=== PATIENT | male | born 1990 | race Caucasian/White ===

== ENCOUNTER 2016-08-28 07:26 | Emergency (ER) | payer MEDICAID, OTHER ==
[~2016-08-28] VITALS: Wt 102.0 kg
[2016-08-28] MEDS ORDERED: HC30CR25 TOP (08:29)
[2016-08-28] MEDS ORDERED: CEPH-443 PO (08:29)
[2016-08-28] MEDS ORDERED: ELIM TOP (08:30)
[2016-08-28] MEDS ORDERED: BEN25 PO (08:30)
--- NOTE | 2016-08-28 08:36 | ERD ---
ER Documentation Chief Complaint Date/Time DATE: 08/28/16 TIME: 08:32 Chief Complaint SKIN RASH X 2 WEEKS HPI Is a 26-year-old male who presents the emergency department today for a rash on his left leg and right side of his neck. 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 States he is concerned he has scabies. States that the rash is itchy. States it is been there for 3 weeks. States he got out of snf today. States the rash in his neck comes and goes denies any fevers or chills ROS All systems reviewed and are negative except as per history of present illness. Medications Home Meds Active Scripts Permethrin* (Elimite*) 5% Cr, 1 APPLIC TOP ONCE, #1 TUB Prov:LOKI MOLINA PA-C 08/28/16 Diphenhydramine Hcl* (Benadryl*) 25 Mg Cap, 25 MG PO Q6, #30 CAP Prov:LOKI MOLINA PA-C 08/28/16 Cephalexin* (Keflex*) 500 Mg Capsule, 500 MG PO QID for 7 Days, CAP Prov:LOKI MOLINA PA-C 08/28/16 Hydrocortisone* Topical (Hydrocortisone* Topical) 2.5%-28.3 Gm Cream..g., 1 APPLIC TOP BID for 7 Days, #1 TUB Prov:LOKI MOLINA PA-C 08/28/16 PMhx/Soc Medical and Surgical Hx: pt denies Medical Hx, pt denies Surgical Hx History of Surgery: No Anesthesia Reaction: No Hx Neurological Disorder: No Hx Respiratory Disorders: No Hx Cardiac Disorders: No Hx Psychiatric Problems: No Hx Miscellaneous Medical Probl: No Hx Alcohol Use: No Hx Substance Use: Yes Hx Tobacco Use: No Smoking Status: Former smoker Physical Exam Vitals Vital Signs Date Time Temp Pulse Resp B/P Pulse Ox O2 Delivery O2 Flow Rate FiO2 08/28/16 07:30 98.1 89 18 155/99 99 Physical Exam Const: No acute distress Head: Atraumatic Eyes: Normal Conjunctiva ENT: Normal External Ears, Nose and Mouth. Neck: Full range of motion..~ No meningismus. Resp: Clear to auscultation bilaterally Cardio: Regular rate and rhythm, no murmurs Abd: Soft, non tender, non distended. Normal bowel sounds Skin: Left tibia with mild skin excoriation. Right side of neck no evidence of rash.. No erythema or warmth. No purulent drainage Back: No midline or flank tenderness Ext: No cyanosis, or edema Neur: Awake and alert Psych: Normal Mood and Affect Procedures/MDM This is a 26-year-old male who presents the emergency department today for a rash on the right side of his neck and left tibia. On physical exam patient does have some mild skin excoriations. Patient was concerned of scabies as he has been in snf. I do not feel that patient's symptoms and signs are consistent with that however patient will be given a prescription for permethrin given that he has been in snf for the past year and may have contacted that. Rash appears to be more dermatitis as it is itchy. There is no evidence of rash on his neck. Patient has also been scratching the area. Patient is afebrile and otherwise well-appearing low suspicion for allergic reaction,, cellulitis, deep space tracking infection, sepsis, SJS, meningitis patient will also be given a prescription for hydrocortisone cream, Benadryl, Keflex. At this time the patient is stable for discharge and outpatient management. Patient should follow up with their PCP in the next 1-2 days. They may return to the emergency department sooner for any persistent or worsening of symptoms. Patient understood and agreed with the plan. Departure Diagnosis: Primary Impression: Rash and other nonspecific skin eruption Condition: Fair Patient Instructions: Self-Care for Skin Rashes Referrals: [facility] YOU HAVE RECEIVED A MEDICAL SCREENING EXAM AND THE RESULTS INDICATE THAT YOU DO NOT HAVE A CONDITION THAT REQUIRES URGENT TREATMENT IN THE EMERGENCY DEPARTMENT. FURTHER EVALUATION AND TREATMENT OF YOUR CONDITION CAN WAIT UNTIL YOU ARE SEEN IN YOUR DOCTORS OFFICE WITHIN THE NEXT 1-2 DAYS. IT IS YOUR RESPONSIBILITY TO MAKE AN APPOINTMENT FOR FOLOW-UP CARE. IF YOU HAVE A PRIMARY DOCTOR --you should call your primary doctor and schedule an appointment IF YOU DO NOT HAVE A PRIMARY DOCTOR YOU CAN CALL OUR PHYSICIAN REFERRAL HOTLINE AT IF YOU CAN NOT AFFORD TO SEE A PHYSICIAN YOU CAN CHOSE FROM THE FOLLOWING [facility] [address] [facility]. [facility] [address] [facility] [facility] [address] [facility] [address] [facility] [address] [facility]. [facility] [address] Additional Instructions: Call your primary care doctor TOMORROW for an appointment during the next 1-2 days.See the doctor sooner or return here if your condition worsens before your appointment time. Use hydrocortisone cream and take Benadryl as needed for itching Avoid further scratching and take antibiotics as prescribed Use permethrin cream for possible scabies infestation LOKI MOLINA PA-C Aug 28, 2016 08:35
== END 2016-08-28 09:05 | disposition home or self-care (01) ==
LOC: FTE 07:26
DX: R21 Rash and other nonspecific skin eruption (principal); Z87.891 Personal history of nicotine dependence
CPT/HCPCS: 99283

== ENCOUNTER 2016-09-05 15:41 | Emergency (ER) | payer MEDICAID ==
[~2016-09-05] VITALS: Ht 180.3 cm; Wt 134.5 kg
[~2016-09-05 15:41] MED LIST: BEN25 PO; CEPH-443 PO; ELIM TOP; HC30CR25 TOP
[2016-09-05 15:43] VITALS: Ht 180.3 cm; Wt 134.5 kg
[2016-09-05] MEDS ORDERED: [UNRECOGNIZED DRUG - CODE] MC (15:59)
--- NOTE | 2016-09-05 16:04 | ERD ---
ER Documentation Chief Complaint Date/Time DATE: 09/05/16 TIME: 16:02 Chief Complaint swollen feet x 3 days thinks it from medication he has been taking HPI 26-year-old male comes in with history of rash, currently being treated with Keflex, and also he used permethrin cream. He states he got a rash after being out of long-term, he thinks he might have gotten it from some sheets. He reports bilateral feet swelling for the past 3 days, there is no pain, no calf pain. There is no history of any hives, itching, angioedema. ROS All systems reviewed and are negative except as per history of present illness. Medications Home Meds Active Scripts Compression Socks, Medium (FUTURO RESTORING) 1 Each Each, 1 EACH MC for swelling , #1 Prov:ALBERTO SUAZO PA-C 09/05/16 Permethrin* (Elimite*) 5% Cr, 1 APPLIC TOP ONCE, #1 TUB Prov:LOKI MOLINA PA-C 08/28/16 Diphenhydramine Hcl* (Benadryl*) 25 Mg Cap, 25 MG PO Q6, #30 CAP Prov:LOKI MOLINA PA-C 08/28/16 Cephalexin* (Keflex*) 500 Mg Capsule, 500 MG PO QID for 7 Days, CAP Prov:LOKI MOLINA PA-C 08/28/16 Hydrocortisone* Topical (Hydrocortisone* Topical) 2.5%-28.3 Gm Cream..g., 1 APPLIC TOP BID for 7 Days, #1 TUB Prov:LOKI MOLINA PA-C 08/28/16 Allergies Allergies: Coded Allergies: No Known Allergy (Unverified , 09/05/16) PMhx/Soc History of Surgery: No Anesthesia Reaction: No Hx Neurological Disorder: No Hx Respiratory Disorders: No Hx Cardiac Disorders: No Hx Psychiatric Problems: No Hx Miscellaneous Medical Probl: No Hx Alcohol Use: No Hx Substance Use: Yes Hx Tobacco Use: No Physical Exam Vitals Vital Signs Date Time Temp Pulse Resp B/P Pulse Ox O2 Delivery O2 Flow Rate FiO2 09/05/16 15:43 98.5 58 16 122/65 98 Physical Exam General: Well-developed, well-nourished. The patient appears in no acute distress. HEENT: Head is normocephalic, atraumatic. No scleral icterus. Neck: Supple. Nontender. Lungs: Clear to auscultation. Normal air movement. Heart: Regular rate and rhythm. S1 and S2 are normal. No rales, no rhonchi Abdomen: Soft, nontender, nondistended. Bowel sounds are normoactive. Extremities: Bilateral feet are swollen, there is no pedal edema. No calf tenderness, negative Homans sign. There is no erythema or warmth. Skin: Normal turgor. No rash or lesions. Procedures/MDM 26-year-old male comes in with bilateral peripheral edema. It has been ongoing for 3 days, there are no signs of cellulitis, abscess, DVT, angioedema, anaphylaxis. Patient does not have any signs of CHF. This does not appear to be an allergy reaction. He will be given compression stockings, asked to elevate his feet. Departure Diagnosis: Primary Impression: Peripheral edema Condition: Good Patient Instructions: Peripheral Edema, Bilateral Additional Instructions: Call your primary care doctor TOMORROW for an appointment during the next 1-2 days.See the doctor sooner or return here if your condition worsens before your appointment time. ALBERTO SUAZO PA-C Sep 05, 2016 16:04
== END 2016-09-05 16:08 | disposition home or self-care (01) ==
LOC: FTE 15:41
DX: R60.0 Localized edema (principal)
CPT/HCPCS: 99283

== ENCOUNTER 2018-04-23 12:37 | Emergency (ER) | payer MEDICAID, OTHER ==
[~2018-04-23] VITALS: Wt 114.4 kg
[~2018-04-23 12:37] MED LIST changes: +[UNRECOGNIZED DRUG - CODE] MC
[2018-04-23 12:42] VITALS: BP 134/65; PULSE 74; RESP 18
[2018-04-23] MEDS ORDERED: HYDROCODONE/APAP (5/325) TAB PO ONE (14:00)
[2018-04-23] MEDS ORDERED: LIDOCAINE 1% (MPF) 5 ML VIAL INFIL ONE (14:00)
[2018-04-23] MEDS ORDERED: ACET1TAB40 PO (14:30)
[2018-04-23] MEDS ORDERED: CEPH-443 PO (14:30)
--- NOTE | 2018-04-23 14:33 | ERD ---
ER Documentation Chief Complaint Chief Complaint RIGHT MIDDLE FINGER INJURY X1 DAY HPI 28-year-old male sustained a right middle finger injury yesterday while helping a friend move and getting his finger caught between a wall and furniture. He has a laceration on the dorsum of his right third digit which he thought would heal but would not stop bleeding. He has no restricted range of motion or weakness. Pain is increased today. ROS All systems reviewed and are negative except as per history of present illness. Medications Home Meds Active Scripts Cephalexin* (Keflex*) 500 Mg Capsule, 500 MG PO QID for 7 Days, CAP Prov:SAMIRA DODSON MD 04/23/18 Acetaminophen with Codeine (Acetaminophen-Cod #3 Tablet) 1 Each Tablet, 1 TAB PO Q6H PRN for PAIN, #10 TAB Prov:SAMIRA DODSON MD 04/23/18 Compression Socks, Medium (FUTURO RESTORING) 1 Each Each, 1 EACH MC for swelling, #1 Prov:ALBERTO SUAZO PA-C 09/05/16 Permethrin* (Elimite*) 5% Cr, 1 APPLIC TOP ONCE, #1 TUB Prov:LOKI MOLINA PA-C 08/28/16 Diphenhydramine Hcl* (Benadryl*) 25 Mg Cap, 25 MG PO Q6, #30 CAP Prov:LOKI MOLINA PA-C 08/28/16 Cephalexin* (Keflex*) 500 Mg Capsule, 500 MG PO QID for 7 Days, CAP Prov:LOKI MOLINA PA-C 08/28/16 Hydrocortisone* Topical (Hydrocortisone* Topical) 2.5%-28.3 Gm Cream..g., 1 APPLIC TOP BID for 7 Days, #1 TUB Prov:LOKI MOLINA PA-C 08/28/16 Allergies Allergies: Coded Allergies: No Known Allergy (Unverified , 09/05/16) PMhx/Soc Medical and Surgical Hx: pt denies Medical Hx, pt denies Surgical Hx History of Surgery: No Anesthesia Reaction: No Hx Neurological Disorder: No Hx Respiratory Disorders: No Hx Cardiac Disorders: No Hx Psychiatric Problems: No Hx Miscellaneous Medical Probl: No Hx Alcohol Use: Yes (occ) Hx Substance Use: No Hx Tobacco Use: No Smoking Status: Never smoker FmHx Family History: No diabetes, No coronary disease, No other Physical Exam Vitals Vital Signs Date Temp Pulse Resp B/P (MAP) Pulse Ox O2 O2 Flow FiO2 Time Delivery Rate 04/23/18 97.7 74 18 134/65 98 12:42 (88) Physical Exam Const: No acute distress Head: Atraumatic Eyes: Normal Conjunctiva ENT: Normal External Ears, Nose and Mouth. Neck: Full range of motion. No meningismus. Resp: Clear to auscultation bilaterally Cardio: Regular rate and rhythm, no murmurs Abd: Soft, non tender, non distended. Normal bowel sounds Skin: No petechiae or rashes Back: No midline or flank tenderness Ext: No cyanosis, or edema. Approximately 1.2 cm laceration on the dorsum of the right middle finger PIP joint. No appreciable tendon or neurologic deficits. No erythema, discharge. Neur: Awake and alert Psych: Normal Mood and Affect Results 24 hrs Current Medications Medications Dose Sig/Sotero Start Time Status Last (Trade) Ordered Route PRN Stop Time Admin Dose Reason Admin 1 tab ONCE ONCE 04/23/18 DC 04/23/18 Acetaminophen PO 14:00 13:53 / 04/23/18 14:01 Hydrocodone Bitart ([place] (5/325)) Lidocaine 5 ml ONCE ONCE 04/23/18 DC 04/23/18 (Xylocaine INFIL 14:00 13:53 1% (Mpf)) 04/23/18 14:01 Procedures/MDM X-ray right middle finger 2V Interpreted by me: Bones: No fracture Joints: No dislocation Foreign body: None. Impression-no acute fracture dislocation her right middle finger x-ray Procedure note-right middle finger was irrigated copiously normal saline. 1 cc lidocaine was used for local infiltration. 3 4-0 nylon sutures were to reapproximate the wound. Patient tolerated procedure well and the wound was d ressed. The patient was placed in a right middle finger extension splint. Patient was neurovascular intact after splint. Patient be discharged home with recommendations for 2-day wound check and 10 days suture removal. Return sooner for fevers, redness, new worsening symptoms. Departure Diagnosis: Primary Impression: Laceration Additional Impression: Finger injury Encounter type: initial encounter Laterality: right Qualified Codes: S69.91XA - Unspecified injury of right wrist, hand and finger(s), initial encounter Condition: Stable Patient Instructions: Laceration, Hand, Sprain Finger Additional Instructions: The right is normal. Recommend wound check in 2 days and suture removal in approximately 10 days. Recheck otherwise for redness, fever or worsening symptoms. SAMIRA DODSON MD Apr 23, 2018 14:32
== END 2018-04-23 14:56 | disposition home or self-care (01) ==
LOC: FTE 12:37
DX: S61.212A Laceration without foreign body of right middle finger without damage to nail, initial encounter (principal); W23.0XXA Caught, crushed, jammed, or pinched between moving objects, initial encounter; Y92.9 Unspecified place or not applicable
CPT/HCPCS: 12001; 73140; Z7502; Z7610

== ENCOUNTER 2018-04-25 11:15 | Emergency (ER) | payer OTHER ==
[~2018-04-25] VITALS: Ht 180.3 cm; Wt 113.8 kg
[~2018-04-25 11:15] MED LIST changes: +ACET1TAB40 PO
[2018-04-25 11:20] VITALS: BP 134/75; PULSE 70; RESP 18; Ht 180.3 cm; Wt 113.8 kg
--- NOTE | 2018-04-25 12:44 | ERD ---
ER Documentation Chief Complaint Chief Complaint FOR RECHECK ON RT 3RD FINGER LAC HPI This is a 28-year-old male with a nonsignificant past medical history presents ED for wound check. Patient has a laceration to his right third finger that was sustained 2 days ago. Patient denies any fever, chills, redness, swelling, warmth, tenderness or purulent drainage. Patient admits to some decreased range of motion due to the sutures being in place on his knuckle. No tingling numbness or locking sensation. ROS All systems reviewed and are negative except as per history of present illness. Medications Home Meds Active Scripts Cephalexin* (Keflex*) 500 Mg Capsule, 500 MG PO QID for 7 Days, CAP Prov:SAMIRA DODSON MD 04/23/18 Acetaminophen with Codeine (Acetaminophen-Cod #3 Tablet) 1 Each Tablet, 1 TAB PO Q6H PRN for PAIN, #10 TAB Prov:SAMIRA DODSON MD 04/23/18 Compression Socks, Medium (FUTURO RESTORING) 1 Each Each, 1 EACH MC for swelling, #1 Prov:ALBERTO SUAZO PA-C 09/05/16 Permethrin* (Elimite*) 5% Cr, 1 APPLIC TOP ONCE, #1 TUB Prov:LOKI MOLINA PA-C 08/28/16 Diphenhydramine Hcl* (Benadryl*) 25 Mg Cap, 25 MG PO Q6, #30 CAP Prov:LOKI MOLINA PA-C 08/28/16 Cephalexin* (Keflex*) 500 Mg Capsule, 500 MG PO QID for 7 Days, CAP Prov:LOKI MOLINA PA-C 08/28/16 Hydrocortisone* Topical (Hydrocortisone* Topical) 2.5%-28.3 Gm Cream..g., 1 APPLIC TOP BID for 7 Days, #1 TUB Prov:LOKI MOLINA PA-C 08/28/16 Allergies Allergies: Coded Allergies: No Known Allergy (Unverified , 09/05/16) PMhx/Soc History of Surgery: No Anesthesia Reaction: No Hx Neurological Disorder: No Hx Respiratory Disorders: No Hx Cardiac Disorders: No Hx Psychiatric Problems: No Hx Miscellaneous Medical Probl: No Hx Alcohol Use: Yes (occ) Hx Substance Use: No Hx Tobacco Use: No FmHx Family History: No diabetes Physical Exam Vitals Vital Signs Date Temp Pulse Resp B/P (MAP) Pulse Ox O2 O2 Flow FiO2 Time Delivery Rate 04/25/18 98.2 70 18 134/75 98 11:20 (94) Physical Exam Const: No acute distress Head: Atraumatic Eyes: Normal Conjunctiva ENT: Normal External Ears, Nose and Mouth. Neck: Full range of motion. No meningismus. Resp: Clear to auscultation bilaterally Cardio: Regular rate and rhythm, no murmurs Skin: No petechiae or rashes, sutures are in place along the right third digit with no redness, swelling, warmth or tenderness palpation, no purulent drainage expressed, no lymphatic streaking Neur: Awake and alert Psych: Normal Mood and Affect Procedures/MDM ER COURSE: The patient was stable throughout ED course. I kept the patient and/or family informed of laboratory and diagnostic imaging results throughout the emergency room course. The patient was promptly evaluated and a treatment plan was devised based on H&P and other data. This plan was discussed with the patient who agreed and had no further questions or concerns prior to discharge. MEDICAL DECISION MAKING: The wound is clean, dry and intact with no evidence of infection. Patient has good wound closure and good wound approximation. There is no surrounding erythema, warmth, tenderness or lymphatic streaking. Low suspicion for deep space infection, compartment syndrome, cellulitis, neurovascular injury, tendon injury. Patient's vitals are stable and she can be managed with close outpatient follow-up. Advised patient follow-up with primary care in the next 48 hours. Advised to return to ED with any worsening symptoms. Advised patient that he will need to return the emergency department to be seen by his primary care physician to have sutures removed in 7-10 days. DISPOSITION PLAN: We discussed follow up with the patient's primary care doctor within 24 to 48 hours. Patient counseled regarding my diagnostic impression and care plan. Prior to discharge all questions answered. Pt agrees with treatment plan and understands strict return precautions. Precautionary instructions provided including instructions to return to the ER if not improving or for any worsening or changing symptoms or concerns. ExitCare instructions provided. Prior to discharge, patients vital signs have been reviewed SPECIALIST FOLLOW UP RECOMMENDED: None Patient has been advised to follow up with primary care in 1-2 days. Disclaimer: Inadvertent spelling and grammatical errors are likely due to EHR/dictation software use and do not reflect on the overall quality of patient care. Also, please note that the electronic time recorded on this note does not necessarily reflect the actual time of the patient encounter. Blood Pressure Assessment: Patient's blood pressure was elevated (>120/80) but appears stable without evidence of hypertension emergency or urgency. The patient was counseled about the risks of hypertension and urged to pursue outpatient monitoring and therapy within a week with their primary care physician. Departure Diagnosis: Primary Impression: Encounter for wound re-check Condition: Stable Patient Instructions: Wound Care, Wound Check, Lac F/U (No Infection) Referrals: [facility] YOU HAVE RECEIVED A MEDICAL SCREENING EXAM AND THE RESULTS INDICATE THAT YOU DO NOT HAVE A CONDITION THAT REQUIRES URGENT TREATMENT IN THE EMERGENCY DEPARTMENT. FURTHER EVALUATION AND TREATMENT OF YOUR CONDITION CAN WAIT UNTIL YOU ARE SEEN IN YOUR DOCTORS OFFICE WITHIN THE NEXT 1-2 DAYS. IT IS YOUR RESPONSIBILITY TO MAKE AN APPOINTMENT FOR FOLOW-UP CARE. IF YOU HAVE A PRIMARY DOCTOR --you should call your primary doctor and schedule an appointment IF YOU DO NOT HAVE A PRIMARY DOCTOR YOU CAN CALL OUR PHYSICIAN REFERRAL HOTLINE AT IF YOU CAN NOT AFFORD TO SEE A PHYSICIAN YOU CAN CHOSE FROM THE FOLLOWING [facility] [address] [facility]. [facility] [address] [facility]. [facility] [address] [facility] [address] [facility]. [facility] [address] [facility]. [facility]. [address] Additional Instructions: Return to emergency department or be seen by primary care physician in 7-10 days to have sutures removed. Patient advised to return to the ED immediately for new or worsening symptoms. Patient advised to follow up with primary care provider in the next 24-48 hours. Patient verbalized understanding and agrees with treatment plan and course of action. If patient has no primary care they may follow up with one of the [facility] clinics listed on the following page or one of the options listed below [facility] [address] [place] [address] or [facility] [address] [place] [address] or [facility] [address] [place] [address] DONAVAN CHOU PA-C Apr 25, 2018 12:44
== END 2018-04-25 13:07 | disposition home or self-care (01) ==
LOC: FTE 11:15
DX: Z48.01 Encounter for change or removal of surgical wound dressing (principal)
CPT/HCPCS: 99281

== ENCOUNTER 2018-05-05 13:07 | Emergency (ER) | payer OTHER ==
[~2018-05-05] VITALS: Ht 177.8 cm; Wt 100.0 kg
[2018-05-05 13:18] VITALS: BP 132/70; PULSE 68; RESP 18; Ht 177.8 cm; Wt 100.0 kg
--- NOTE | 2018-05-18 14:30 | ERD ---
ER Documentation Chief Complaint Chief Complaint pt bib self for suture removal right middle finger HPI 28-year-old male presents with recheck for right middle finger laceration sustained 13 days ago after a crush injury. He is here for evaluation for suture removal. He has no restricted range of motion, weakness, bleeding or redness or discharge. ROS All systems reviewed and are negative except as per history of present illness. Medications Home Meds Active Scripts Cephalexin* (Keflex*) 500 Mg Capsule, 500 MG PO QID for 7 Days, CAP Prov:SAMIRA DODSON MD 04/23/18 Acetaminophen with Codeine (Acetaminophen-Cod #3 Tablet) 1 Each Tablet, 1 TAB PO Q6H PRN for PAIN, #10 TAB Prov:SAMIRA DODSON MD 04/23/18 Compression Socks, Medium (FUTURO RESTORING) 1 Each Each, 1 EACH MC for swelling, #1 Prov:ALBERTO SUAZO PA-C 09/05/16 Permethrin* (Elimite*) 5% Cr, 1 APPLIC TOP ONCE, #1 TUB Prov:LOKI MOLINA PA-C 08/28/16 Diphenhydramine Hcl* (Benadryl*) 25 Mg Cap, 25 MG PO Q6, #30 CAP Prov:LOKI MOLINA PA-C 08/28/16 Cephalexin* (Keflex*) 500 Mg Capsule, 500 MG PO QID for 7 Days, CAP Prov:LOKI MOLINA PA-C 08/28/16 Hydrocortisone* Topical (Hydrocortisone* Topical) 2.5%-28.3 Gm Cream..g., 1 APPLIC TOP BID for 7 Days, #1 TUB Prov:LOKI MOLINA PA-C 08/28/16 Allergies Allergies: Coded Allergies: No Known Allergy (Unverified , 09/05/16) PMhx/Soc Medical and Surgical Hx: pt denies Medical Hx, pt denies Surgical Hx History of Surgery: No Anesthesia Reaction: No Hx Neurological Disorder: No Hx Respiratory Disorders: No Hx Cardiac Disorders: No Hx Psychiatric Problems: No Hx Miscellaneous Medical Probl: No Hx Alcohol Use: Yes (occ) Hx Substance Use: No Hx Tobacco Use: No Smoking Status: Never smoker FmHx Family History: No diabetes, No coronary disease, No other Physical Exam Physical Exam Const: No acute distress Head: Atraumatic Eyes: Normal Conjunctiva ENT: Normal External Ears, Nose and Mouth. Neck: Full range of motion. No meningismus. Resp: Clear to auscultation bilaterally Cardio: Regular rate and rhythm, no murmurs Abd: Soft, non tender, non distended. Normal bowel sounds Skin: No petechiae or rashes Back: No midline or flank tenderness Ext: No cyanosis, or edema. Healing laceration on the dorsum of the right middle finger. No erythema, bleeding, discharge. Neur: Awake and alert Psych: Normal Mood and Affect Procedures/MDM Sutures removed without complications. Patient presents with satisfactory healing right middle finger laceration without signs of infection, ischemia, deficits. Discharged home with instructions for wound care, return precautions for fevers, redness, new or worsening symptoms. Departure Diagnosis: Primary Impression: Encounter for removal of sutures Condition: Stable Patient Instructions: Suture Removal, No Complication Additional Instructions: Recheck for new or worsening symptoms with primary care doctor. SAMIRA DODSON MD May 18, 2018 14:30
== END 2018-05-05 16:11 | disposition home or self-care (01) ==
LOC: FTE 13:07
DX: Z48.02 Encounter for removal of sutures (principal)
CPT/HCPCS: 99281